=== PATIENT | male | born 1975 | race Caucasian/White ===

== ENCOUNTER 2019-10-04 08:32 | Emergency (ER) | payer BC ==
--- NOTE | 2019-10-04 08:56 | ED ---
Influenza-Like Illness - HPI Summary HPI Summary: Patient is a 44 y/o M presenting to the ED for a chief complaint of influenza- like symptoms that began the night of 10/01/19. Patient complains of cough, nasal congestion, generalized body aches, headache, and sinus pressure. Patient denies fever, nausea, vomiting, or diarrhea. 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 He received an influenza vaccination this season. PMHx is significant for HTN. Patient denies alcohol, tobacco, or drug use. Medications reviewed. Allergies noted. - History of Current Complaint Chief Complaint: EDFluSymptoms Time Seen by Provider: 10/04/19 08:52 Hx Obtained From: Patient Onset/Duration: Sudden Onset, Lasting Days, Still Present Severity: Moderate Associated Signs & Symptoms: Myalgia - Generalized body aches, Cough, Nasal Congestion, Headache - Allergy/Home Medications Allergies/Adverse Reactions: Allergies Allergy/AdvReac Type Severity Reaction Status Date / Time No Known Allergies Allergy Verified 10/04/19 08:35 PMH/Surg Hx/FS Hx/Imm Hx Previously Healthy: Yes Endocrine/Hematology History: Denies: Hx Diabetes Cardiovascular History: Reports: Hx Hypertension Denies: Hx Hypercholesterolemia Sensory History: Denies: Hx Legally Blind, Hx Deafness Opthamlomology History: Denies: Hx Legally Blind EENT History: Denies: Hx Deafness - Surgical History Surgical History: None Surgery Procedure, Year, and Place: None Infectious Disease History: No Infectious Disease History: Denies: Traveled Outside the [place] in Last 30 Days - Family History Known Family History: Negative: Renal Disease - Social History Occupation: Employed Full-time Lives: With Family Alcohol Use: None Hx Substance Use: No Substance Use Type: Reports: None Hx Tobacco Use: No Smoking Status (MU): Never Smoked Tobacco Review of Systems Negative: Fever Positive: Other - Positive nasal congestion and sinus pressure Positive: Cough Negative: Vomiting, Diarrhea, Nausea Positive: Myalgia - Generalized body aches Positive: Headache All Other Systems Reviewed And Are Negative: Yes Physical Exam - Summary Physical Exam Summary: Constitutional: Well-developed, Well-nourished, Alert. (-) Distressed Skin: Warm, Dry HENT: Normocephalic; Atraumatic. Wet sounding cough. Eyes: Conjunctiva normal Neck: Musculoskeletal ROM normal neck. (-) JVD, (-) Stridor, (-) Tracheal deviation Cardio: Rhythm regular, rate normal, Heart sounds normal; Intact distal pulses; Radial pulses are 2+ and symmetric. (-) Murmur Pulmonary/Chest wall: Effort normal. (-) Respiratory distress, (-) Wheezes, (-) Rales Abd: Soft, (-) tenderness, (-) Distension, (-) Guarding, (-) Rebound Musculoskeletal: (-) Edema Lymph: (-) Cervical adenopathy Neuro: Alert, Oriented x3 Psych: Mood and affect Normal Triage Information Reviewed: Yes Vital Signs On Initial Exam: Initial Vitals Temp Pulse Resp BP Pulse Ox 97.9 F 94 18 125/90 97 10/04/19 08:33 10/04/19 08:33 10/04/19 08:33 10/04/19 08:33 10/04/19 08:33 Vital Signs Reviewed: Yes Procedures - Sedation Patient Received Moderate/Deep Sedation with Procedure: No Diagnostics - Vital Signs Vital Signs Temp Pulse Resp BP Pulse Ox 10/04/19 08:33 97.9 F 94 18 125/90 97 - Laboratory Lab Results: Lab Results 10/04/19 Range/Units 08:38 Influenza A (Rapid) Pending Influenza B (Rapid) Pending Lab Statement: Any lab studies that have been ordered have been reviewed, and results considered in the medical decision making process. - Radiology Chest X-ray Radiology Interpretation Completed By: Radiologist Summary of Radiographic Findings: Chest X-ray IMPRESSION: NO EVIDENCE FOR ACTIVE CARDIOPULMONARY DISEASE. Reviewed by Dr. Cordero. Flu Symptom Course/Dx - Course Course Of Treatment: Patient is here with cough, fever, body aches. Patient was diagnosed with influenza but is outside the treatment window for Tamiflu. Patient did have a chest x-ray which showed no evidence of pneumonia. Patient was overall clinically well-appearing. Patient is discharged with symptomatic treatment - Diagnoses Provider Diagnoses: Influenza Discharge ED - Sign-Out/Discharge Documenting (check all that apply): Patient Departure - Discharge - Discharge Plan Condition: Stable Disposition: HOME Prescriptions: Benzonatate CAP* [Tessalon 100 MG CAP*] 100 mg PO TID #20 cap Patient Education Materials: Influenza (ED) Referrals: [facility] [Outside] Additional Instructions: PLEASE RETURN TO EMERGENCY DEPARTMENT FOR WORSENING SHORTNESS OF BREATH, HIGH FEVER, OR ANY NEW OR WORSENING SYMPTOMS. Please follow up with your primary care physician. Please make all follow-ups in 1-3 days unless I advise you otherwise. Stay hydrated with Pedialyte. Take Motrin and Tylenol for pain. Take your cough medications are prescribed. - Billing Disposition and Condition Condition: STABLE Disposition: Home - Attestation Statements Document Initiated by Michael: Yes Documenting Scribe: Paris Bolden Provider For Whom Michael is Documenting (Include Credential): Pietro Cordero MD Scribe Attestation: Paris Lovelace, scribed for Pietro Cordero MD on 10/04/19 at 1758. Scribe Documentation Reviewed: Yes Provider Attestation: The documentation as recorded by the Paris fitzgerald accurately reflects the service I personally performed and the decisions made by me, Pietro Cordero MD Status of Scribvish Document: Viewed
[2019-10-04] MEDS ORDERED: Benzonatate CAP* 100 MG PO ONE (09:03)
[2019-10-04 09:06] LABS: Influenza A Molecular POSITIVE (Negative)
[2019-10-04 10:24] VITALS: BP 117/76
== END 2019-10-04 10:22 | disposition home or self-care (01) ==
LOC: ED 08:32
DX: J10.1 Influenza due to other identified influenza virus with other respiratory manifestations (principal); I10 Essential (primary) hypertension
CPT/HCPCS: 71046; 99282; A9270-GY